=== PATIENT | female | born 1985 | race Caucasian/White ===

== ENCOUNTER 2020-12-16 09:55 | Outpatient (REF) | payer OTHER, SELFPAY ==
[2020-12-16 11:12] LABS: MANUAL DIFF FLAG NO
[2020-12-16 11:20] LABS: Basophils Percent Auto 0.4 % (0-2); Eosinophils Absolute Auto 0.1 X10*3/uL (0.0-0.4); Eosinophils Percent Auto 1.3 % (0-4); Hematocrit 40.8 % (37-47); Hemoglobin 13.5 g/dl (12.0-16.0); Imm Gran Abs Auto 0.01 X10*3/uL (0.00-0.03); Imm Gran Pct Auto 0.2 % (0.0-0.4); Lymphocytes Absolute Auto 1.8 X10*3/uL (1.2-4.9); Lymphocytes Percent Auto 40.9 % (20-40); Mean Corpuscular HGB Conc 33.1 g/dl (31.0-35.0); Mean Corpuscular Volume 84.6 fL (80-98); Mean Platelet Volume 10.5 fL (9.4-12.3); Monocytes Absolute Auto 0.3 X10*3/uL (0.1-1.2); Monocytes Percent Auto 7.2 % (2-11); Neutrophils Absolute Auto 2.2 X10*3/uL (2.0-8.3); Platelet Count 251 X10*3/uL (160-400); Red Blood Count 4.82 X10*6/uL (4.20-5.50); Red Cell Distribution Width 12.8 % (11.0-16.0); White Blood Count 4.5 X10*3/uL (4.8-10.8)
[2020-12-16 12:02] LABS: Alanine Aminotransferase 14 U/L (0-31); Albumin Level 4.8 g/dL (3.5-5.0); Alkaline Phosphatase 47 U/L (39-117); Anion Gap 15 (12-20); Aspartate Amino Transferase 18 U/L (5-31); Bilirubin Total 0.6 mg/dL (0.0-1.0); Blood Urea Nitrogen 17 mg/dL (9-16); Calcium 9.3 mg/dL (8.4-10.2); Carbon Dioxide 25 mmol/L (22-29); Chloride 103 mmol/L (96-108); Cholesterol 194 mg/dL; Estimated Glomerular Filt Rate > 60; Glucose Fasting 95 mg/dL (60-99); HDL Cholesterol 49 mg/dL; LDL Cholesterol Calculated 114 mg/dl; Sodium 139 mmol/L (135-145); Total Protein 7.8 g/dL (6.5-8.0); Triglycerides 156 mg/dL
[2020-12-16 12:10] LABS: Thyroid Stimulating Hormone 1.93 uIU/mL (0.32-4.0)
== END 2020-12-16 09:56 | disposition home or self-care (01) ==
LOC: HO.MANLDS 09:55
PROVIDERS: PCP Internal Medicine; Visit Provider Physician Assistant
DX: Z00.00 Encounter for general adult medical examination without abnormal findings (principal); Z13.6 Encounter for screening for cardiovascular disorders
CPT/HCPCS: 36415; 80053; 80061; 84439; 84443; 85025; 87086

== ENCOUNTER 2020-12-25 08:55 | Outpatient (REF) | payer OTHER, SELFPAY ==
[2020-12-25 11:13] LABS: Glucose Urine UA NEG (NEG); Leukocyte Esterase Urine NEG (NEG); Nitrite Urine NEG (NEG); Specific Gravity - Urine <= 1.005 (1.005-1.025); Urine Blood NEG (NEG); Urine Ketones 15 MG/DL (NEG); Urine Protein NEG (NEG-TRACE)
[2020-12-25 11:16] LABS: Appearance Urine CLEAR; Color Urine STRAW
== END 2020-12-25 08:56 | disposition home or self-care (01) ==
LOC: HO.MANLNP 08:55
PROVIDERS: PCP Internal Medicine; Visit Provider Physician Assistant
DX: R82.2 Biliuria (principal)
CPT/HCPCS: 81003; 87086

== ENCOUNTER 2022-02-07 15:48 | Outpatient (REF) | payer OTHER, SELFPAY ==
[2022-02-07 18:26] LABS: Free T4 (Free Thyroxine) 0.85 ng/dL (0.71-1.85); Thyroid Stimulating Hormone 1.69 uIU/mL (0.32-4.0)
== END 2022-02-07 15:49 | disposition home or self-care (01) ==
LOC: HO.MANLDS 15:48
PROVIDERS: PCP Physician Assistant; Visit Provider Physician Assistant
DX: L65.9 Nonscarring hair loss, unspecified (principal)
CPT/HCPCS: 36415; 84439; 84443

== ENCOUNTER 2023-05-23 09:40 | Outpatient (REF) | payer SELFPAY ==
[2023-05-23 13:17] LABS: Appearance Urine Clear; Color Urine Dark Yellow; Glucose Urine UA Negative (Negative); Leukocyte Esterase Urine Negative (Negative); Nitrite Urine Negative (Negative); Specific Gravity - Urine >= 1.030 (1.005-1.025); Urine Blood Negative (Negative); Urine Ketones Trace mg/dL (Negative); Urine Protein Trace mg/dL (Neg-Trace)
== END 2023-05-23 09:41 | disposition home or self-care (01) ==
LOC: HO.MANLNP 09:40
PROVIDERS: Visit Provider Physician Assistant
DX: R82.90 Unspecified abnormal findings in urine (principal); Z80.52 Family history of malignant neoplasm of bladder
CPT/HCPCS: 81003

== ENCOUNTER 2023-09-06 09:30 | Outpatient (REF) | payer SELFPAY ==
[2023-09-06 13:20] LABS: Uric Acid 5.5 mg/dL (2.4-5.7)
[2023-09-06 13:35] LABS: TSH reflex Free T4 1.02 uIU/mL (0.32-4.0)
== END 2023-09-06 09:31 | disposition home or self-care (01) ==
LOC: HO.MANLDS 09:30
PROVIDERS: Visit Provider Physician Assistant
DX: M10.9 Gout, unspecified (principal); E03.9 Hypothyroidism, unspecified
CPT/HCPCS: 36415; 84443; 84550

== ENCOUNTER 2025-07-02 18:07 | Outpatient (REF) | payer BC, SELFPAY ==
[2025-07-02 18:28] LABS: Appearance Urine Clear; Glucose Urine UA Negative (Negative); PH 5.5 (5.0-9.0); Specific Gravity - Urine 1.015 (1.005-1.025)
== END 2025-07-02 18:08 | disposition home or self-care (01) ==
LOC: HO.MANLNP 18:07
PROVIDERS: Visit Provider Physician Assistant
DX: N39.0 Urinary tract infection, site not specified (principal)
CPT/HCPCS: 81001